=== PATIENT | male | born 1960 | race Caucasian/White ===

== ENCOUNTER 2016-07-05 00:12 | Emergency (ER) | payer MEDICARE, OTHER | END 2016-07-05 05:55 | disposition home or self-care (01) | LOC: ER1 00:12 | DX: S61.451A Open bite of right hand, initial encounter (principal); I10 Essential (primary) hypertension; W54.0XXA Bitten by dog, initial encounter; Z23 Encounter for immunization; Z79.891 Long term (current) use of opiate analgesic | CPT/HCPCS: 73130; 90471; 90715; 96372; 99283; J2270 ==

== ENCOUNTER 2020-05-31 03:54 | Emergency (ER) | payer MEDICARE, OTHER ==
[~2020-05-31 03:54] MED LIST: ZOFRAN ODT 4 MG4 MG SL
== END 2020-05-31 04:27 | disposition home or self-care (01) ==
LOC: ER1 03:54
DX: S01.511A Laceration without foreign body of lip, initial encounter (principal); I10 Essential (primary) hypertension; Z23 Encounter for immunization; W06.XXXA Fall from bed, initial encounter; Y92.009 Unspecified place in unspecified non-institutional (private) residence as the place of occurrence of the external cause
CPT/HCPCS: 12011; 90471; 90715; 99283

== ENCOUNTER 2020-06-05 11:36 | Emergency (ER) | payer MEDICARE, OTHER | END 2020-06-05 13:37 | disposition home or self-care (01) | LOC: ER1 11:36 | DX: S01.511D Laceration without foreign body of lip, subsequent encounter (principal); I10 Essential (primary) hypertension | CPT/HCPCS: 99281 ==

== ENCOUNTER 2020-06-14 04:41 | Emergency (ER) | payer MEDICARE, OTHER ==
[~2020-06-14] VITALS: Ht 149.9 cm; Wt 116.6 kg
[2020-06-14 08:13] LABS: HEMOGLOBIN 14.5 gm/dl (14.0-17.5); RED BLOOD COUNT 4.92 M/UL (4.20-5.50); WHITE BLOOD COUNT 12.5 K/UL (4.5-11.0)
[2020-06-14 08:30] LABS: BUN/CREATININE RATIO 12 (0-10)
[2020-06-14] MEDS ORDERED: VIBRAMYCIN 100100 MG PO (12:09)
[2020-06-14] MEDS ORDERED: IBUPROFEN800 MG PO (12:09)
[2020-06-14] MEDS ORDERED: CEPHALEXIN500 MG PO (12:09)
== END 2020-06-14 12:36 | disposition home or self-care (01) ==
LOC: ER1 04:41
PROVIDERS: Emergency Medicine
DX: N49.2 Inflammatory disorders of scrotum (principal); I10 Essential (primary) hypertension; L03.312 Cellulitis of back [any part except buttock and flank]
CPT/HCPCS: 71045; 80053; 83605; 85025; 87040; 96374; 96375; 96376; 99284; J2270; J2405; J3370; J7070; Q9967

== ENCOUNTER 2020-06-28 20:39 | Emergency (ER) | payer MEDICARE, OTHER ==
[~2020-06-28 20:39] MED LIST changes: +CEPHALEXIN500 MG PO; +IBUPROFEN800 MG PO; +VIBRAMYCIN 100100 MG PO
[2020-06-28 21:13] LABS: HEMOGLOBIN 14.3 gm/dl (14.0-17.5); RED BLOOD COUNT 4.87 M/UL (4.20-5.50)
[2020-06-28 21:33] LABS: BUN/CREATININE RATIO 12 (0-10)
[2020-06-29] MEDS ORDERED: FLAGYL500 MG PO (01:04)
[2020-06-29] MEDS ORDERED: LEVOFLOXACIN500 MG PO (01:04)
== END 2020-06-29 01:18 | disposition home or self-care (01) ==
LOC: ER1 20:39
PROVIDERS: Physician Assistant
DX: K62.5 Hemorrhage of anus and rectum (principal); K51.30 Ulcerative (chronic) rectosigmoiditis without complications; G89.29 Other chronic pain; I10 Essential (primary) hypertension; Z90.49 Acquired absence of other specified parts of digestive tract
CPT/HCPCS: 80053; 85025; 87086; 87449; 99284; Q9967

== ENCOUNTER → 2020-08-21 | Outpatient (CLI) | payer MEDICARE, OTHER ==
[~2020-08-21] MED LIST changes: +FLAGYL500 MG PO; +LEVOFLOXACIN500 MG PO
[2020-08-21 15:39] LABS: HEMOGLOBIN 14.4 gm/dl (14.0-17.5); RED BLOOD COUNT 4.86 M/UL (4.20-5.50); WHITE BLOOD COUNT 9.8 K/UL (4.5-11.0)
[2020-08-21 15:58] LABS: BUN/CREATININE RATIO 11 (0-10)
== END ==
LOC: LAB 14:59
PROVIDERS: Advanced Practice Midwife
DX: K51.90 Ulcerative colitis, unspecified, without complications (principal)
CPT/HCPCS: 36415; 80053; 85027; 86140